=== PATIENT | male | born 1995 | race Two or more races ===

== ENCOUNTER 2021-12-20 12:43 | Emergency (ER) | payer BC, OTHER ==
[~2021-12-20] VITALS: Ht 177.8 cm; Wt 113.6 kg
[2021-12-20 13:22] VITALS: BP 143/92
[2021-12-20] MEDS ORDERED: SUMA50TA2 PO (14:59)
== END 2021-12-20 15:04 | disposition home or self-care (01) ==
LOC: ER 12:43
DX: G44.009 Cluster headache syndrome, unspecified, not intractable (principal)
CPT/HCPCS: 70450

== ENCOUNTER 2024-09-01 06:52 | Emergency (ER) | payer BC ==
[~2024-09-01] VITALS: Ht 177.8 cm; Wt 113.3 kg
[~2024-09-01 06:52] MED LIST: SUMA50TA2 PO
--- NOTE | 2024-09-01 07:36 | ED.PDOC ---
GI ASSESSMENT HPI Comments 28 y/o M, with PMHx of migraines presents to the ED for CC of abdominal pain. Patient states, that he has been experiencing abdominal pain with associated distension x3days. Patient relays, that he has been on a fasting diet [id number] and when he decides to overeat he experiences intermittent sharp abdominal pains. Patient comments, his last bowel movement being as of this morning (09/01/24) however, was very scant. Patient endorses, that he spoke to his PCP via telehealth yesterday (08/31/24); was relayed to the ED for further evaluation of possible ulcers. Patient complains of current 9/10 pain. No other symptoms or modifying factors present at this time Chief Complaint: Abdominal Pain Time Seen by MD: 07:00 Primary Care Provider: SHELLIE Reviewed Notes: Nurses Notes, Medications, Allergies Allergies: Coded Allergies: NO KNOWN ALLERGIES (Unverified , 12/20/21) Home Meds Active Scripts Sumatriptan Succinate (Imitrex) 50 Mg Tab, 50 MG PO BID PRN, #20 TAB Prov:CASTRO STYLES 12/20/21 Information Source: Patient Mode of Arrival: Ambulatory Timing: Days Duration: Since onset Prehospital treatment: None Quality: Sharp Vomitus: None Stool: Impaction Severity: Moderate Recent: None Recent Hx of: None Pain Location: Diffuse Modifying Factors: Nothing Associated sign and symptoms: Abdominal Pain Past Medical History Past Medical History (Other): MIGRAINE Surgical History: Denies all surgeries Family History Family History: Reviewed,noncontributory to illness Social History Smoker: Non-Smoker Alcohol: Denies ETOH Use Drugs: Denies Drug Use Lives In: Home Constitutional: denies: chills, diaphoresis, fatigue, fever, malaise, sweats, weakness, others EENTM: denies: blurred vision, double vision, ear bleeding, ear discharge, ear drainage, ear pain, ear ringing, eye pain, eye redness, hearing loss, mouth pain, mouth swelling, nasal discharge, nose bleeding, nose congestion, nose pain, photophobia, tearing, throat pain, throat swelling, voice changes, others Respiratory: denies: cough, hemoptysis, orthopnea, SOB at rest, shortness of breath, SOB with excertion, stridor, wheezing, others Cardiovascular: denies: chest pain, dizzy spells, diaphoresis, Dyspnea on exertion, edema, irregular heart beat, left arm pain, lightheadedness, palpitations, PND, syncope, others Gastrointestinal: reports: abdomen distended, abdominal pain; denies: blood streaked bowels, constipated, diarrhea, dysphagia, difficulty swallowing, hematemesis, melena, nausea, poor appetite, poor fluid intake, rectal bleeding, rectal pain, vomiting, others Genitourinary: denies: burning, dysuria, flank pain, frequency, hematuria, incontinence, penile discharge, penile sore, pain, testicle pain, testicle swelling, urgency, others Neurological: denies: dizziness, fainting, headache, left sided numbness, left sided weakness, numbness, paresthesia, pre-existing deficit, right sided numbness, right sided weakness, seizure, speech problems, tingling, tremors, weakness, others Musculoskeletal: denies: back pain, gout, joint pain, joint swelling, muscle pain, muscle stiffness, neck pain, others Integumetry: denies: bruises, change in color, change in hair/nails, dryness, laceration, lesions, lumps, rash, wounds, others Allergic/Immunocompromised: denies: Difficulty Healing, Frequent Infections, Hives, Itching, others Hematologic/Lymphatic: denies: anemia, blood clots, easy bleeding, easy b ruising, swollen glands, others Endocrine: denies: excessive hunger, excessive sweating, excessive thirst, excessive urination, flushing, intolerance to cold, intolerance to heat, unexplained weight gain, unexplained weight loss, others Psychiatric: denies: anxiety, bipolar disorder, depression, hopeless, panic disorder, schizophrenia, sleepless, suicidal, others All Other Systems: Reviewed and Negative Physical Exam General Appearance: Mild Distress, Moderate Distress, Obese HEENT: Normal ENT Inspection, PERRL/EOMI Neck: Full Range of Motion, Non-Tender, Normal, Normal Inspection Respiratory: Chest Non-Tender, Lungs Clear, No Accessory Muscle Use, No Respiratory Distress, Normal Breath Sounds Cardiovascular: No Edema, No JVD, No Murmur, No Gallop, Normal Peripheral Pulses, Regular Rate/Rhythm Breast Exam: Deferred Gastrointestinal: Diffuse, Distended, Epigastric, No Organomegaly, No Pulsatile Mass, Normal Bowel Sounds, RLQ, RUQ, Suprapubic, Tenderness Genitalia: Deferred Pelvic: Deferred Rectal: Deferred Extremities: No calf tenderness, Normal capillary refill, Normal inspection, Normal range of motion, Non-tender, No pedal edema Neurologic: Alert, unit technician II-XII nml as Tested, No Motor Deficits, Normal Affect, Normal Mood, No Sensory Deficits Cerebellar Function: Normal Reflexes: Normal Skin: Dry, Normal Color, Warm Peripheral Pulses: 1+ carotid (R), 1+ carotid (L) Lymphatic: No Adenopathy Was a procedure done? Was a procedure done?: No GI differential Dx Differential Diagnosis: Appendicitis, Bowel Obstruction, Cholecystitis, Diverticular disease, Gastritis/PUD, Gastroenteritis, Inflammatory BD, Pancreatitis, UTI, Dehydration, Diabetes/ DKA, Drug toxicity, Electrolyte Imbalance, Food Poisoning, Malnutrition, Ischemic Bowel, Anemia, Other (ulcer) X-Ray, Labs, Meds, VS Vital Signs Date Time Temp Pulse Resp B/P (MAP) Pulse Ox O2 Delivery O2 Flow Rate FiO2 09/01/24 10:10 97.6 68 14 119/85 (96) 98 97.6 09/01/24 08:07 89 20 95 Room Air* 0 21 09/01/24 07:51 66 16 94 Room Air 09/01/24 07:51 98.0 66 16 132/85 (101) 97 98.0 09/01/24 07:00 97.7 77 20 146/93 (110) 95 97.7 Lab Test 09/01/24 07:25 Range/Units White Blood Count 8.4 4.4-10.8 10^3/uL Red Blood Count 5.35 4.5-5.90 10^6/uL Hemoglobin 15.8 13.5-17.5 g/dL Hematocrit 46.0 41.0-53.0 % Mean Corpuscular Volume 86.0 80.0-100.0 fL Mean Corpuscular Hemoglobin 29.6 28.0-32.0 pg Mean Corpuscular Hemoglobin Concent 34.4 32.0-36.0 g/dL Red Cell Distribution Width 13.9 11.8-14.3 % Platelet Count 286 140-450 10^3/uL Mean Platelet Volume 7.8 6.9-10.8 fL Neutrophils (%) (Auto) 70.9 37.0-80.0 % Lymphocytes (%) (Auto) 18.6 10.0-50.0 % Monocytes (%) (Auto) 8.9 0.0-12.0 % Eosinophils (%) (Auto) 1.2 0.0-7.0 % Basophils (%) (Auto) 0.4 0.0-2.0 % Neutrophils # (Auto) 5.9 1.6-8.6 10 ^3/uL Lymphocytes # (Auto) 1.6 0.4-5.4 10 ^3/uL Monocytes # (Auto) 0.7 0-1.3 10 ^3/uL Eosinophils # (Auto) 0.1 0-0.8 10 ^3/uL Basophils # (Auto) 0 0-0.2 10 ^3/uL Nucleated Red Blood Cells 0.1 % Sodium Level 140 136-145 mmol/L Potassium Level 3.9 3.5-5.1 mmol/L Chloride Level 110 H 98-107 mmol/L Carbon Dioxide Level 25 20-31 mmol/L Anion Gap 5 5-15 Blood Urea Nitrogen 14 9-23 mg/dL Creatinine 0.79 0.700-1.30 mg/dL Glomerular Filtration Rate Calc 123 >90 mL/min BUN/Creatinine Ratio 17.7 10.0-20.0 Serum Glucose 99 74-106 mg/dL Calcium Level 9.7 8.7-10.4 mg/dL Magnesium Level 2.1 1.6-2.6 mg/dL Total Bilirubin 2.1 H 0.2-1.0 mg/dL Aspartate Amino Transferase (AST) 138 H 13-40 U/L Alanine Aminotransferase (ALT) 146 H 7-40 U/L Alkaline Phosphatase 118 H 46-116 U/L Total Protein 8.0 5.7-8.2 g/dL Albumin 4.8 3.2-4.8 g/dL Lipase 32 12-53 U/L Current Medications Medications (Trade) Dose Ordered Sig/Candis Route Start Time Stop Time Status Last Admin Metoclopramide HCl (Reglan Injection) 10 mg ONCE ONCE IV 09/01/24 07:15 09/01/24 07:16 DC 09/01/24 08:02 Sodium Chloride 1,000 ml @ 150 mls/hr Q6H40M ONCE IV 09/01/24 07:15 09/01/24 13:54 09/01/24 08:00 Ketorolac Tromethamine (Toradol Injection) 30 mg ONCE ONCE IV 09/01/24 07:15 09/01/24 07:16 DC 09/01/24 08:[address] [address] Ph: [phone] DIAGNOSTIC IMAGING Diagnostic Imaging Report : [id number] Signed PATIENT: NINFA DIAZ ACCT: [id number] UNIT: [id number] : 1995 LOC: ER ROOM / BED: / AGE / SEX: 28 / M ADM STATUS: REG ER SERVICE 07 ORDERING PHYSICIAN: CAMRON CABRERA MD PROCEDURE(s): ABPLIV - CT AB PEL WITH IV CON ONLY REASON: Diffuse abdominal pain ORDER NUMBER(s): [id number], ACCESSION NUMBER(s): [id number] CLINICAL INFORMATION: 28 years old, Male; Diffuse abdominal pain. TECHNIQUE: Axial CT images of the abdomen and pelvis were obtained after the uneventful administration of 100 mL Omnipaque 300 IV contrast. Coronal and sagittal reformatted images were obtained, reviewed, and stored. All CT scans at this medical facility are performed using dose modulation techniques as appropriate to a performed exam including the following: Automated exposure control was utilized; adjustment of the MA and/or KV according to patient size; and use of iterative reconstruction technique. CTDIvol = 25.93 mGy DLP = 1599.42 mGy-cm COMPARISON: None FINDINGS: Lung bases: Lung bases are clear. Liver: Hepatic steatosis. Biliary: Mildly distended gallbladder. No calcified gallstones visualized. Spleen: Unremarkable. Pancreas: Unremarkable. No inflammatory changes, ductal dilatation, or mass identified. Adrenal glands: Unremarkable. No mass. Kidneys: No hydronephrosis or mass. Aorta/Vascular: No aneurysm or significant calcification. Retroperitoneum: No mass or lymphadenopathy. Bowel/mesentery: No small bowel obstruction. No free air or free fluid. Appendix is visualized and appears unremarkable. Scattered small colonic diverticula without adjacent inflammatory changes to suggest diverticulitis. Pelvic organs: Grossly unremarkable. Bladder: Unremarkable. No mass. Abdominal wall: No mass or hernia. Bones: No acute fracture or focal intraosseous lesion. IMPRESSION: 1. Hepatic steatosis. 2. Mildly distended gallbladder. No calcified gallstones. Correlate with cl inical findings. If clinically indicated, ultrasound could be obtained. 3. Scattered small colonic diverticula without adjacent inflammatory changes to suggest diverticulitis. ATED BY: JAMAL PEGUERO DO DICTATED DATE/TIME: 09/01/24831 SIGNED BY: JAMAL PEGUERO DO SIGNED DATE/TIME: 09/01/24831 CC: X-Ray, Labs, Meds, VS Comment Course in the emergency department eventful patient came complaining of abdominal mostly epigastrium and periumbilical area he said every time he eats he gets a bloated and painful The CT abdomen and pelvis shows hepatic steatosis distended gallbladder and diverticulosis Patient will go for an ultrasound of the gallbladder which is normal no signs of stones or cholecystitis CBC normal CMP blood sugar 99 rest is normal Lipase 32 Magnesium 2.1 Liver enzymes elevated Patient will be discharged home to follow up with his PCP Time of 1ST Reevaluation: 07:30 Reevaluation 1ST: Unchanged Patient Education/Counseling: Diagnosis, Treatment Family Education/Counseling: No Family Present Departure 1 Departure Time of Disposition: 11:49 Impression: Primary Impression: Right sided abdominal pain Additional Impression: Gastritis Qualified Codes: K29.30 - Chronic superficial gastritis without bleeding Ruled Out: Appendicitis, Cholecystitis, Acute pancreatitis Disposition: HOME / SELF CARE / HOMELESS Condition: Fair Additional Instructions: Push fluids full liquid diet for 48 hours follow up with a [employer] teacher e-Prescriptions Metoclopramide Hcl (Reglan) 10 Mg Tab 10 MG PO BID for 10 Days, #20 TAB Prov: CAMRON CABRERA MD 09/01/24 Aluminum Hydroxide-Mag Carb (Gaviscon Extra Strength) 1 Chw Chw 1 CHW PO QID for 10 Days, #60 TAB.CHEW Prov: CAMRON CABRERA MD 09/01/24 Omeprazole (Gnp Omeprazole) 20 Mg Tab 1 TAB PO BID for 15 Days, #30 TAB 1 Refill Prov: CAMRON CABRERA MD 09/01/24 Discharged With: Self Critical Care Note Critical Care Time?: No Stability Stability form required: No Heart Score Heart Score: Heart Score Response (Comments) Value History N/A 0 EKG N/A 0 Age <45 0 Risk Factors No known risk factors 0 Troponin N/A 0 Total 0 I personally scribed for CAMRON CABRERA MD ([email or web address]) on 09/01/24 at 07:36. Electronically submitted by Sanjuanita Toro ([email or web address]). I personally scribed for CAMRON CABRERA MD ([email or web address]) on 09/01/24 at 08:47. Electronically submitted by Sanjuanita Toro ([email or web address]). CAMRON CABRERA MD Sep 01, 2024 07:36
[2024-09-01 07:40] LABS: Basophils # (auto) 0 10 ^3/uL (0-0.2); Basophils % (auto) 0.4 % (0.0-2.0); Eosinophils # (auto) 0.1 10 ^3/uL (0-0.8); Eosinophils % (auto) 1.2 % (0.0-7.0); Hemoglobin 15.8 g/dL (13.5-17.5); Lymphocytes # (auto) 1.6 10 ^3/uL (0.4-5.4); Lymphocytes % (auto) 18.6 % (10.0-50.0); Mean Corpuscular Hemoglobin 29.6 pg (28.0-32.0); Mean Corpuscular Hgb Conc. 34.4 g/dL (32.0-36.0); Monocytes # (auto) 0.7 10 ^3/uL (0-1.3); Monocytes % (auto) 8.9 % (0.0-12.0); Neutrophils # (auto) 5.9 10 ^3/uL (1.6-8.6); Neutrophils % (auto) 70.9 % (37.0-80.0); Nucleated Red Blood Cells % 0.1 %; Platelet Count (auto) 286 10^3/uL (140-450); Red Blood Cells 5.35 10^6/uL (4.5-5.90); Red Cell Distribution Width 13.9 % (11.8-14.3); White Blood Cell 8.4 10^3/uL (4.4-10.8)
[2024-09-01 07:55] LABS: Anion Gap 5 (5-15); BUN/Creatinine Ratio 17.7 (10.0-20.0); Blood Urea Nitrogen 14 mg/dL (9-23); Calcium 9.7 mg/dL (8.7-10.4); Carbon Dioxide 25 mmol/L (20-31); Glucose 99 mg/dL (74-106); Lipase 32 U/L (12-53); Magnesium 2.1 mg/dL (1.6-2.6); Potassium 3.9 mmol/L (3.5-5.1); Sodium 140 mmol/L (136-145)
[2024-09-01 08:00] LABS: Alanine Aminotransferase 146 U/L (7-40); Albumin 4.8 g/dL (3.2-4.8); Alkaline Phosphatase 118 U/L (46-116); Aspartate Aminotransferase 138 U/L (13-40); Bilirubin, Total 2.1 mg/dL (0.2-1.0); Chloride 110 mmol/L (98-107)
[2024-09-01] MEDS: SODIUM CHLORIDE 0.9% 1,000 ML IV ONE (08:00)
[2024-09-01] MEDS: KETOROLAC TROMETH 30 MG/ML 1ML VIAL IV ONE (08:01)
[2024-09-01] MEDS: METOCLOPRAMIDE HCL 5MG/ml INJ 2ml VIAL IV ONE (08:02)
[2024-09-01 08:07] VITALS: PULSE 89; RESP 20; O2SAT 95
[2024-09-01] MEDS: IOHEXOL 300 MG/ML 100ML BOTTLE IJ ONE (08:27)
--- NOTE | 2024-09-01 08:34 | DVH ---
CLINICAL INFORMATION: 28 years old, Male; Diffuse abdominal pain. TECHNIQUE: Axial CT images of the abdomen and pelvis were obtained after the uneventful administrati on of 100 mL Omnipaque 300 IV contrast. Coronal and sagittal reformatted images were obtained, review ed, and stored. All CT scans at this medical facility are performed using dose modulation techniques as appropriate to a performed exam including the following: Automated exposure control was utilized; adjustment of the MA and/or KV according to patient size; and use of iterative reconstruction [employer] ue. CTDIvol = 25.93 mGy DLP = 1599.42 mGy-cm COMPARISON: None FINDINGS: Lung bases: Lung bases are clear. Liver: Hepatic steatosis. Biliary: Mildly distended gallbladder. No calcified gallstones visualized. Spleen: Unremarkable. Pancreas: Unremarkable. No inflammatory changes, ductal dilatation, or mass identified. Adrenal glands: Unremarkable. No mass. Kidneys: No hydronephrosis or mass. Aorta/Vascular: No aneurysm or significant calcification. Retroperitoneum: No mass or lymphadenopathy. Bowel/mesentery: No small bowel obstruction. No free air or free fluid. Appendix is visualized and ap pears unremarkable. Scattered small colonic diverticula without adjacent inflammatory changes to sug gest diverticulitis. Pelvic organs: Grossly unremarkable. Bladder: Unremarkable. No mass. Abdominal wall: No mass or hernia. Bones: No acute fracture or focal intraosseous lesion. IMPRESSION: 1. Hepatic steatosis. 2. Mildly distended gallbladder. No calcified gallstones. Correlate with clinical findings. If clinic ally indicated, ultrasound could be obtained. 3. Scattered small colonic diverticula without adjacent inflammatory changes to suggest diverticuliti s.
--- NOTE | 2024-09-01 09:55 | DVH ---
INDICATION: [facility] TECHNIQUE: Multiple real-time sonographic images were obtained of the right upper quadrant. COMPARISON: None FINDINGS: Evaluation is limited due to body habitus. The liver demonstrates increased echotexture. Th e liver measures. 20 cm. There is no intrahepatic or extrahepatic ductal dilatation. The common duct measures 5 mm. The gallbladder is without evidence of stone or sludge. The gallbladder wall measures 2 mm and is wi thin normal limits. The right kidney measures 11.9 cm. The right kidney is normal in contour, size, and shape. The echog enicity is normal. There is no hydronephrosis. The pancreas is not well visualized due to overlying bowel gas. IMPRESSION: Hepatic steatosis and hepatomegaly. No sonographic evidence of gallstones.
[2024-09-01] MEDS ORDERED: OMEP20TA PO (11:53)
[2024-09-01] MEDS ORDERED: ALUMCHW6 PO (11:53)
[2024-09-01] MEDS ORDERED: METO-281 PO (11:54)
[2024-09-01 12:29] VITALS: BP 111/67; PULSE 66; RESP 20; TEMP 97.6; O2SAT 96
== END 2024-09-01 12:32 | disposition home or self-care (01) ==
LOC: ER 06:52
DX: K29.70 Gastritis, unspecified, without bleeding (principal); G43.909 Migraine, unspecified, not intractable, without status migrainosus; Z79.899 Other long term (current) drug therapy
CPT/HCPCS: 36415; 74177; 76705; 80053; 83690; 83735; 85025; 96361; 96374; 96375; 99285; J1885; J2765; J7030; Q9967